=== PATIENT | male | born 1960 | race Caucasian/White ===

== ENCOUNTER 2016-06-08 20:18 | Emergency (ER) | payer MEDICAID ==
[~2016-06-08] VITALS: Ht 172.7 cm; Wt 72.6 kg
[~2016-06-08 20:18] MED LIST: LORA-258 PO; PHEN50TA PO
[2016-06-08 20:23] VITALS: BP 142/80
== END 2016-06-08 21:09 | disposition home or self-care (01) ==
LOC: ER 20:22
DX: F10.20 Alcohol dependence, uncomplicated (principal); M19.90 Unspecified osteoarthritis, unspecified site; Z88.0 Allergy status to penicillin; Z59.0 Homelessness; G40.909 Epilepsy, unspecified, not intractable, without status epilepticus; F17.200 Nicotine dependence, unspecified, uncomplicated
CPT/HCPCS: 99283; A4606; Z7610

== ENCOUNTER 2016-10-12 14:53 | Emergency (ER) | payer MEDICAID ==
[~2016-10-12] VITALS: Ht 172.7 cm; Wt 81.6 kg
--- NOTE | 2016-10-12 15:05 | NUR ---
PT BIB [facility] C/O ETOH INTOX. ADMITS TO DRINKING TODAY. SMELLS OF ETOH AND FOUL SMELLING. DENIES PHYSICAL COMPLAINTS EXCEPT CHRONIC ATHRITIS PAIN. NAD NOTED. IN ER BED 14.
--- NOTE | 2016-10-12 15:14 | NUR ---
CALLED FOR FOOD TRAY
--- NOTE | 2016-10-12 15:28 | NUR ---
PROVIDED WITH MEAL TRAY
[2016-10-12] MEDS ORDERED: IBUPROFEN 600 MG TABLET PO ONE ×2 (15:49→16:00)
--- NOTE | 2016-10-12 15:58 | NUR ---
Patient discharged to home in stable condition. Written and verbal after care instructions given. Patient verbalizes understanding of instruction.
[2016-10-12 15:59] VITALS: BP 132/76
== END 2016-10-12 16:00 | disposition home or self-care (01) ==
LOC: ER 14:55
DX: F10.20 Alcohol dependence, uncomplicated (principal); G40.909 Epilepsy, unspecified, not intractable, without status epilepticus; M19.90 Unspecified osteoarthritis, unspecified site; F17.200 Nicotine dependence, unspecified, uncomplicated; Z88.0 Allergy status to penicillin; Z59.0 Homelessness
CPT/HCPCS: A4606; Z7610